=== PATIENT | female | born 1980 | race Caucasian/White ===

== ENCOUNTER 2019-01-01 16:47 | Emergency (ER) | payer SELFPAY ==
[2019-01-01] MEDS ORDERED: DEXAMETHASONE SOD PHOS 10 MG/ML VIAL IM ONE (17:15)
[2019-01-01] MEDS ORDERED: KETOROLAC 60 MG/2 ML VIAL. IM ONE (17:15)
[2019-01-01] MEDS ORDERED: KETO10TA PO (17:40)
[2019-01-01] MEDS ORDERED: TRAM50TA PO (17:40)
[2019-01-01] MEDS ORDERED: METH4TAB2 PO (17:40)
--- NOTE | 2019-01-01 17:40 | PHYS DOC ---
Adult General Chief Complaint Chief Complaint: UPPER EXTREMITY PAIN HPI HPI Patient is a 38-year-old female who presents with complaint of right wrist and forearm pain for the last several days and progressively worsening. She indicates that pain is worsened with flexion and extension of her wrist and with movement of her thumb. 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.[] Review of Systems Review of Systems Constitutional: Denies fever or chills [] Respiratory: Denies cough or shortness of breath [] Cardiovascular: No additional information not addressed in HPI [] Musculoskeletal: Positive right wrist and forearm pain [] Integument: Denies rash or skin lesions [] Current Medications Current Medications Current Medications Medications (Trade) Dose Ordered Sig/Turner Start Time Stop Time Status Last Admin Dose Admin Dexamethasone Sodium Phosphate (Decadron) 10 mg 1X ONCE 01/01/19 17:15 01/01/19 17:16 DC 01/01/19 17:21 10 MG Ketorolac Tromethamine (Toradol Im) 60 mg 1X ONCE 01/01/19 17:15 01/01/19 17:16 DC 01/01/19 17:20 60 MG Allergies Allergies Allergies Coded Allergies Type Severity Reaction Last Updated Verified Sulfa (Sulfonamide Antibiotics) Allergy Unknown 01/01/19 Yes Physical Exam Physical Exam Constitutional: Well developed, well nourished, no acute distress, non-toxic appearance. [] Cardiovascular:Heart rate regular rhythm, no murmur [] Lungs & Thorax: Bilateral breath sounds clear to auscultation [] Skin: Warm, dry, no erythema, no rash. [] Extremities: Examination of right wrist demonstrates pain with both flexion and extension of the wrist. There is also pain on Catrachito's testing. [] EKG EKG [] Radiology/Procedures Radiology/Procedures [] Course & Med Decision Making Course & Med Decision Making Pertinent Labs and Imaging studies reviewed. (See chart for details) [] Dragon Disclaimer Dragon Disclaimer This electronic medical record was generated, in whole or in part, using a voice recognition dictation system. Departure Departure: Impression: Primary Impression: Tendinitis of right wrist Additional Impression: De Quervain's tenosynovitis, right Disposition: 01 HOME, SELF-CARE Condition: STABLE Referrals: PCP,NO (PCP) Patient Instructions: De Quervain's Tenosynovitis-SportsMed, Tendinitis Scripts Methylprednisolone (MEDROL) 4 Mg Tab.ds.pk 1 PKG PO UD for tendinitis, #1 PKG Prov: MULUGETA RODRIGUEZ Jr. DO 01/01/19 Tramadol Hcl (TRAMADOL HCL) 50 Mg Tablet 50 MG PO PRN Q6HRS PRN for PAIN, #12 TAB Prov: MULUGETA RODRIGUEZ Jr. DO 01/01/19 Ketorolac Tromethamine (KETOROLAC TROMETHAMINE) 10 Mg Tablet 1 TAB PO PRN Q6HRS PRN for PAIN, #20 TAB Prov: MULUGETA RODRIGUEZ Jr. DO 01/01/19 Problem Qualifiers MULUGETA RODRIGUEZ Jr. DO Jan 01, 2019 17:40
== END 2019-01-01 17:43 | disposition home or self-care (01) ==
LOC: ER 16:47
DX: M70.031 Crepitant synovitis (acute) (chronic), right wrist (principal); M77.9 Enthesopathy, unspecified; Z88.2 Allergy status to sulfonamides; Y93.89 Activity, other specified
CPT/HCPCS: 29125; 96372; 99284; J1100; J1885

== ENCOUNTER 2019-01-09 07:30 | Emergency (ER) | payer SELFPAY ==
[~2019-01-09] VITALS: Ht 185.4 cm; Wt 102.1 kg
[~2019-01-09 07:30] MED LIST: KETO10TA PO; METH4TAB2 PO; TRAM50TA PO
[2019-01-09] MEDS ORDERED: IBUPROFEN 600 MG TABLET. PO ONE (08:00)
--- NOTE | 2019-01-09 08:25 | RAD ---
Examination: 2 views of the right johnnie and 3 views of the right wrist HISTORY: History of crush injury COMPARISON: None available FINDINGS: The alignment of the radius, ulna grossly appears unremarkable. There is no acute fracture or dislocation identified. Alignment of the carpal bones grossly appears unremarkable. Questionable elbow joint effusion. IMPRESSION: No obvious acute osseous findings. Questionable elbow joint effusion. Consider follow-up elbow radiograph in 5-7 days, if there is clinical suspicion for acute fracture. Electronically signed by: Patrick Hall MD (01/09/2019 8:22 AM) [place] [id number]
[2019-01-09] MEDS ORDERED: MELO7.5T29 PO (08:43)
[2019-01-09] MEDS ORDERED: DOXY100T PO (08:43)
[2019-01-09] MEDS ORDERED: LISI10TA2 PO (08:43)
--- NOTE | 2019-01-09 08:44 | PHYS DOC ---
Past History Past Medical History: DVT, Hypertension, Other Past Surgical History: , Tubal ligation, Other Smoking: Cigarettes Alcohol Use: None Social History Narrative: hx of use, none recently Adult General Chief Complaint Chief Complaint: MULTIPLE COMPLAINTS HPI HPI Patient is a 38-year-old female presents complaining of multiple complaints: 1. Right third toe infection. This started within the past 48 hours, was swollen, it popped and drained material. It is irritated. 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 She has not been on any recent antibiotics. Denies any fever denies any nausea or vomiting. It is painful to touch. Discomfort is mild to moderate. 2. Continued right forearm and wrist pain. 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 Her arm got trapped between the wall and the patient's wheelchair arm. She has had continued pain since that time. She reports increased pain with movement. She was seen approximately a week ago and was initially doing better with steroid and NSAID treatment however pain has returned and become worse. Increased pain with movement especially extension of the fingers. No weakness. She is right-hand dominant. No numbness. She has not followed up with anyone since this happened.[] Review of Systems Review of Systems Constitutional: Denies fever or chills [] Eyes: Denies change in visual acuity, redness, or eye pain [] HENT: Denies nasal congestion or sore throat [] Respiratory: Denies cough or shortness of breath [] Cardiovascular: No chest pain or palpitations[] GI: Denies abdominal pain, nausea, vomiting, bloody stools or diarrhea [] : Denies dysuria or hematuria [] Musculoskeletal: Denies back pain or joint pain [] Integument: Patient concerned because she has not followed up with the health care team the performed breast biopsy approximately 5 weeks ago. She reports being afraid of finding out the results. There is a family history of breast cancer. This skin from the biopsy sites has been healing well.[] Neurologic: Denies headache, focal weakness or sensory changes [] Endocrine: Denies polyuria or polydipsia [] All other systems were reviewed and found to be within normal limits, except as documented in this note. Current Medications Current Medications Current Medications Medications (Trade) Dose Ordered Sig/Turner Start Time Stop Time Status Last Admin Dose Admin Ibuprofen (Motrin) 600 mg 1X ONCE 7/22/19 08:00 01/09/19 08:03 DC Allergies Allergies Allergies Coded Allergies Type Severity Reaction Last Updated Verified Sulfa (Sulfonamide Antibiotics) Allergy Unknown 01/01/19 Yes Physical Exam Physical Exam Constitutional: Well developed, well nourished, no acute distress, non-toxic appearance. [] HENT: Normocephalic, atraumatic, bilateral external ears normal, oropharynx moist, no oral exudates, nose normal. [] Eyes: PERRLA, EOMI, conjunctiva normal, no discharge. [] Neck: Normal range of motion, no tenderness, supple, no stridor. [] Cardiovascular:Heart rate regular rhythm, no murmur [] Lungs & Thorax: Bilateral breath sounds clear to auscultation [] Abdomen: Bowel sounds normal, soft, no tenderness, no masses, no pulsatile masses. [] Skin: Warm, dry, no erythema, no rash. [] Back: No tenderness, no CVA tenderness. [] Extremities: Right third toe has a 1 cm by half centimeter region of removed e pidermis. There is no purulent drainage. No red streaks tracking proximally. She is distally neurovascularly intact. Right forearm and wrist has full active range of motion. Diffuse tenderness. FDS, FDP, and extensor mechanisms are intact. Normal opposition. Capillary refill is less than 2 seconds. 2. discrimination is less than 5 mm. A joint above and below the forearm and wrist were evaluated and were normal. The other 2 extremities show: No tenderness, no cyanosis, no clubbing, ROM intact, no edema. [] Neurologic: Alert and oriented X 3, normal motor function, normal sensory function, no focal deficits noted. [] Psychologic: Affect tearful when talking about the breast biopsy, judgement normal, mood depressed. [] Current Patient Data Vital Signs Vital Signs Date Time Temp Pulse Resp B/P (MAP) Pulse Ox O2 Delivery O2 Flow Rate FiO2 01/09/19 07:30 98.0 107 18 99 Room Air EKG EKG [] Radiology/Procedures Radiology/Procedures Examination: 2 views of the right johnnie and 3 views of the right wrist HISTORY: History of crush injury COMPARISON: None available FINDINGS: The alignment of the radius, ulna grossly appears unremarkable. There is no acute fracture or dislocation identified. Alignment of the carpal bones grossly appears unremarkable. Questionable elbow joint effusion. IMPRESSION: No obvious acute osseous findings. Questionable elbow joint effusion. Consider follow-up elbow radiograph in 5-7 days, if there is clinical suspicion for acute fracture. [] Course & Med Decision Making Course & Med Decision Making Pertinent Labs and Imaging studies reviewed. (See chart for details) ED course: Patient arrived, was placed in bed, and tolerated exam well. She was transported to and from radiology with any complications. Held additional NSAIDs from the patient since her last dose was 6, 200 mg tablets of ibuprofen at 4:00 this morning. Discussed appropriate dosing of NSAIDs. Also discussed needing to take blood pressure medicine and follow-up with her health care team the performed the breast biopsy. All questions were answered. Patient was discharged in improved condition. Medical decision making: There is no evidence of a fracture dislocation. We will cover the toe lesion for MRSA. Note that she is allergic to sulfa medicines and so we'll be prescribing doxycycline. Will change anti-inflammatory to one that is once a day. Will not prescribe any additional steroids at this time. Will start patient on a antihypertensive that is on the $4 list at local pharmacies. Also instructing patient on the DASH diet.[] Dragon Disclaimer Dragon Disclaimer This electronic medical record was generated, in whole or in part, using a voice recognition dictation system. Departure Departure: Impression: Primary Impression: Cellulitis Additional Impressions: Crush injury forearm Hypertension Disposition: 01 HOME, SELF-CARE Condition: IMPROVED Referrals: PCP,NO (PCP) Patient Instructions: Cellulitis, DASH Diet, Hypertension Additional Instructions: Follow-up with your regular doctor in 2 days. If you do not have a regular doctor list of local clinics will be provided for you. Take your medication as prescribed. Follow-up with the health care team regarding the results of your breast biopsy. Return to the ER if worsening pain, weakness, or any other concerns. Scripts Lisinopril (LISINOPRIL) 10 Mg Tablet 10 MG PO DAILY for FOR HYPERTENSION, #30 TAB 0 Refills Prov: MARIA C CORREA DO 01/09/19 Meloxicam (MELOXICAM) 7.5 Mg Tablet 7.5 MG PO DAILY for PAIN, #20 TAB Prov: MARIA C CORREA DO 01/09/19 Doxycycline Hyclate (DOXYCYCLINE HYCLATE) 100 Mg Tablet 1 TAB PO BID for cellulitis, #20 TAB Prov: MARIA C CORREA DO 01/09/19 Problem Qualifiers Primary Impression: Cellulitis Site of cellulitis: extremity Site of cellulitis of extremity: lower extremity Laterality: right Qualified Codes: L03.115 - Cellulitis of right lower limb Additional Impressions: Crush injury forearm Encounter type: subsequent encounter Laterality: right Qualified Codes: S57.81XD - Crushing injury of right forearm, subsequent encounter Hypertension Hypertension type: unspecified Qualified Codes: I10 - Essential (primary) hypertension MARIA C CORREA DO Jan 09, 2019 08:44
[2019-01-09 08:58] VITALS: BP 144/108
== END 2019-01-09 08:58 | disposition home or self-care (01) ==
LOC: ER 07:30
DX: S57.81XD Crushing injury of right forearm, subsequent encounter (principal); L03.115 Cellulitis of right lower limb; I10 Essential (primary) hypertension; M25.531 Pain in right wrist; F17.210 Nicotine dependence, cigarettes, uncomplicated; Z86.718 Personal history of other venous thrombosis and embolism; Z86.14 Personal history of Methicillin resistant Staphylococcus aureus infection; Z88.2 Allergy status to sulfonamides; W23.0XXD Caught, crushed, jammed, or pinched between moving objects, subsequent encounter
CPT/HCPCS: 73090; 73110; 99284

== ENCOUNTER 2019-01-29 22:03 | Inpatient (IN) | payer SELFPAY ==
[~2019-01-29] VITALS: Ht 185.4 cm; Wt 108.7 kg
[~2019-01-29 22:03] MED LIST changes: +DOXY100T PO; +LISI10TA2 PO; +MELO7.5T29 PO
--- NOTE | 2019-01-29 22:45 | ED.ADGEN ---
Past History Past Medical History: DVT, High Cholesterol, Hypertension, Other Past Surgical History: , Tubal ligation, Other Smoking: Cigarettes Alcohol Use: None Drug Use: None Adult General Chief Complaint Chief Complaint ".. I started having some chest pain today... here in the center... I ve had this discomfort since about 7:30 ( 1930 hrs).. it just aleja nagging uncomfortable... not really a pain..." HPI HPI Patient is a 38 year old female who presents with above hx and complaints central chest discomfort. No radiation. No history of trauma. No history of prior cardiac disorder. Has had history of previous DVT , was treated with Coumadin for 6 months. She does a history of elevated cholesterol. Patient does smoke. Patient does have a history of hypertension. Patient has a history of immunosuppression. No history of cough or fever or chills. Patient normally follows with Dr. Moreno. Patient does have a strong family history of cardiac disease and MIs. Father had NH at age 38. Mother had NH at age 53. Brother of spinal meningitis. Sister has not had any problems. Review of Systems Review of Systems Constitutional: Denies fever or chills [] Eyes: Denies change in visual acuity, redness, or eye pain [] HENT: Denies nasal congestion or sore throat [] Respiratory: Denies cough or shortness of breath [] Cardiovascular: No additional information not addressed in HPI [] GI: Denies abdominal pain, nausea, vomiting, bloody stools or diarrhea [] : Denies dysuria or hematuria [] Musculoskeletal: Denies back pain or joint pain [] Integument: Denies rash or skin lesions [] Neurologic: Denies headache, focal weakness or sensory changes [] Endocrine: Denies polyuria or polydipsia [] All other systems were reviewed and found to be within normal limits, except as documented in this note. Family History Family History Hypertension coronary artery disease. Current Medications Current Medications Current Medications Medications (Trade) Dose Ordered Sig/Turner Start Time Stop Time Status Last Admin Dose Admin Acetaminophen (Tylenol) 650 mg PRN Q4HRS PRN 01/30/19 00:00 01/30/19 23:59 Aspirin (Children'S Aspirin) 324 mg 1X ONCE 01/29/19 23:15 01/29/19 23:16 DC 01/29/19 23:47 324 MG Enoxaparin Sodium (Lovenox 100mg Syringe) 100 mg 1X ONCE 01/30/19 00:15 01/30/19 00:16 DC 01/30/19 00:21 100 MG Lactated Ringer's 1,000 ml @ 200 mls/hr Q5H 01/30/19 00:00 01/30/19 02:44 DC 01/30/19 01:49 200 MLS/HR Nitroglycerin (Nitro-Bid Oint) 1 inch 1X ONCE 01/30/19 00:15 01/30/19 00:16 DC 01/30/19 00:30 1 INCH Ondansetron HCl (Zofran) 4 mg PRN Q4HRS PRN 01/30/19 00:15 01/30/19 00:16 DC Allergies Allergies Allergies Coded Allergies Type Severity Reaction Last Updated Verified Sulfa (Sulfonamide Antibiotics) Allergy Unknown 01/01/19 Yes Physical Exam Physical Exam Constitutional: moderate acute distress, non-toxic appearance. [] HENT: Normocephalic, atraumatic, bilateral external ears normal, oropharynx moist, no oral exudates, nose normal. [] Eyes: PERRLA, EOMI, conjunctiva normal, no discharge. [] Neck: Normal range of motion, no tenderness, supple, no stridor. [] Cardiovascular:Heart rate regular rhythm, no murmur [] Lungs & Thorax: Bilateral breath sounds equal apex with few scattered wheezes on auscultation [] Abdomen: Bowel sounds normal, soft, no tenderness, no masses, no pulsatile masses. [] Mild obesity. Old surgery scars Skin: Warm, dry, no erythema, no rash. [] Back: No tenderness, no CVA tenderness. [] Extremities: No tenderness, no cyanosis, no clubbing, ROM intact, no edema. [] No cording appreciated Neurologic: Alert and oriented X 3, normal motor function, normal sensory function, no focal deficits noted. [] Psychologic: Affect anxious, judgement normal, mood normal. [] Current Patient Data Vital Signs Vital Signs Date Time Temp Pulse Resp B/P (MAP) Pulse Ox O2 Delivery O2 Flow Rate FiO2 01/29/19 23:40 77 18 103/59 (74) 98 Room Air 01/29/19 22:14 97.6 Lab Results Laboratory Tests Test 01/29/19 22:23 White Blood Count 10.7 x10^3/uL (4.0-11.0) Red Blood Count 4.53 x10^6/uL (3.50-5.40) Hemoglobin 13.8 g/dL (12.0-15.5) Hematocrit 42.0 % (36.0-47.0) Mean Corpuscular Volume 93 fL (79-100) Mean Corpuscular Hemoglobin 30 pg (25-35) Mean Corpuscular Hemoglobin Concent 33 g/dL (31-37) Red Cell Distribution Width 14.0 % (11.5-14.5) Platelet Count 310 x10^3/uL (140-400) Neutrophils (%) (Auto) 57 % (31-73) Lymphocytes (%) (Auto) 30 % (24-48) Monocytes (%) (Auto) 10 % (0-9) H Eosinophils (%) (Auto) 3 % (0-3) Basophils (%) (Auto) 1 % (0-3) Neutrophils # (Auto) 6.1 x10^3uL (1.8-7.7) Lymphocytes # (Auto) 3.2 x10^3/uL (1.0-4.8) Monocytes # (Auto) 1.1 x10^3/uL (0.0-1.1) Eosinophils # (Auto) 0.3 x10^3/uL (0.0-0.7) Basophils # (Auto) 0.1 x10^3/uL (0.0-0.2) Prothrombin Time < 9.3 SEC (9.4-11.4) L Prothrombin Time INR 0.9 (0.9-1.1) Activated Partial Thromboplast Time 24 SEC (23-33) D-Dimer (Jamila) 0.32 mg/L (0.00-0.50) Maternal Serum HCG Beta Subunit < 1 mIU/mL (0-6) Sodium Level 139 mmol/L (136-145) Potassium Level 3.9 mmol/L (3.5-5.1) Chloride Level 101 mmol/L (98-107) Carbon Dioxide Level 28 mmol/L (21-32) Anion Gap 10 (6-14) Blood Urea Nitrogen 15 mg/dL (7-20) Creatinine 1.3 mg/dL (0.6-1.0) H Estimated GFR (Cockcroft-Gault) 46.3 Glucose Level 93 mg/dL (70-99) Calcium Level 9.0 mg/dL (8.5-10.1) Magnesium Level 2.1 mg/dL (1.8-2.4) Total Bilirubin 0.1 mg/dL (0.2-1.0) L Direct Bilirubin 0.1 mg/dL (0.0-0.2) Aspartate Amino Transferase (AST) 6 U/L (15-37) L Alanine Aminotransferase (ALT) 20 U/L (14-59) Alkaline Phosphatase 67 U/L (46-116) Creatine Kinase 128 U/L (26-192) Troponin I Quantitative < 0.017 ng/mL (0-0.055) XF-Rsr-H-Type Natriuretic Peptide 23 pg/mL (0-124) Total Protein 7.4 g/dL (6.4-8.2) Albumin 3.5 g/dL (3.4-5.0) Lipase 142 U/L (73-393) EKG EKG I interpretation EKG shows a sinus rhythm at 87 bpm. There is mild leftward axis. There is some nonspecific anterior septal changes. But no findings acute STEMI of contralateral changes.[] Radiology/Procedures Radiology/Procedures I interpretation Chest x-ray shows no acute cardiopulmonary findings.[] See formal [place] [id number] IMAGING REPORT Signed PATIENT: ELIER SALAZAR JACCOUNT: [id number] : 1980 LOCATION: [address] [place] [address] AGE: 38 SEX: F EXAM STATUS: ADM IN ORD. PHYSICIAN: GA ARRIETA MD REASON: cp PROCEDURE: CHEST PA & LATERAL Two-view chest dated 01/29/2019. No comparison available. Clinical data indication: Chest pain. FINDINGS: PA and lateral views were obtained. Heart and mediastinal contours within normal limits. Lungs are clear. No consolidation or pleural effusion. No pneumothorax. IMPRESSION: No acute radiographic abnormality. Electronically signed by: Ramon Lopez MD (01/30/2019 12:38 AM) [facility] DICTATED AND SIGNED BY: RAMON LOPEZ MD DATE: 01/30/19 0038 CC: MAKI ANDERSON MD; GA ARRIETA MD; PCP,NO ~ Course & Med Decision Making Course & Med Decision Making Pertinent Labs and Imaging studies reviewed. (See chart for details) Admit to Dr. Anderson and cardiology consult. Heart score 4 to 5 [] Final Impression Final Impression 1. Chest Pain 2. HTN 3. Hx Elevated Cholesterol 4. Tobacco Use[] 5. Mild elevation creatinine 1.3 Dragon Disclaimer Dragon Disclaimer This electronic medical record was generated, in whole or in part, using a voice recognition dictation system. Dragon Disclaimer This chart was dictated in whole or in part using Voice Recognition software in a busy, high-work load, and often noisy Emergency Department environment. It may contain unintended and wholly unrecognized errors or omissions. GA ARRIETA MD Jan 29, 2019 22:45
[2019-01-29 23:05] LABS: BASO # 0.1 x10^3/uL (0.0-0.2); BASO % 1 % (0-3); EOS # 0.3 x10^3/uL (0.0-0.7); EOS % 3 % (0-3); HEMOGLOBIN 13.8 g/dL (12.0-15.5); LYMPH # 3.2 x10^3/uL (1.0-4.8); LYMPH % 30 % (24-48); MEAN CORPUSCULAR HEMOGLOBIN 30 pg (25-35); MEAN CORPUSCULAR HGB CONC 33 g/dL (31-37); MEAN CORPUSCULAR VOLUME 93 fL (79-100); MONO # 1.1 x10^3/uL (0.0-1.1); MONO % 10 % (0-9); NEUT # 6.1 x10^3uL (1.8-7.7); NEUT % 57 % (31-73); PLATELET COUNT 310 x10^3/uL (140-400); RED BLOOD COUNT 4.53 x10^6/uL (3.50-5.40); WHITE BLOOD COUNT 10.7 x10^3/uL (4.0-11.0)
[2019-01-29] MEDS ORDERED: ASPIRIN 81 MG TAB.CHEW PO ONE (23:15)
[2019-01-29] MEDS ORDERED: IV RINGERS SOLUTION,LACTATED 1,000 ML IV SCH (23:15)
[2019-01-29 23:17] LABS: ALBUMIN 3.5 g/dL (3.4-5.0); CREATININE 1.3 mg/dL (0.6-1.0); DIRECT BILIRUBIN 0.1 mg/dL (0.0-0.2); GFR 46.3; MAGNESIUM 2.1 mg/dL (1.8-2.4); POTASSIUM 3.9 mmol/L (3.5-5.1); TOTAL BILIRUBIN 0.1 mg/dL (0.2-1.0); TOTAL PROTEIN 7.4 g/dL (6.4-8.2)
[2019-01-30] MEDS ORDERED: ACETAMINOPHEN 325 MG TABLET PO PRN
[2019-01-30] MEDS ORDERED: NITROGLYCERIN OINT 1 GM PACKET. TP ONE (00:15)
[2019-01-30] MEDS ORDERED: ONDANSETRON PF 4 MG/2 ML VIAL. IV PRN ×2 (00:15→08:30)
[2019-01-30] MEDS ORDERED: ENOXAPARIN ** NOTE DOSE ** SYRINGE SQ ONE (00:15)
--- NOTE | 2019-01-30 00:40 | RAD ---
Two-view chest dated 01/29/2019. No comparison available. Clinical data indication: Chest pain. FINDINGS: PA and lateral views were obtained. Heart and mediastinal contours within normal limits. Lungs are clear. No consolidation or pleural effusion. No pneumothorax. IMPRESSION: No acute radiographic abnormality. Electronically signed by: Ramon Lopez MD (01/30/2019 12:38 AM) [facility]
[2019-01-30 01:58] VITALS: BP 130/85
[2019-01-30 05:50] VITALS: BP 114/69
[2019-01-30] MEDS: IPRATRPIUM/ALBUTEROL 0.5/2.5MG 3 ML NEBU. NEB SCH ×3 (08:00→16:00)
[2019-01-30] MEDS ORDERED: IV RINGERS SOLUTION,LACTATED 1,000 ML IV SCH ×2 (08:00)
[2019-01-30] MEDS ORDERED: ONDANSETRON PF 4 MG/2 ML VIAL. IM ONE (08:15)
[2019-01-30 09:30] LABS: BASO # 0.1 x10^3/uL (0.0-0.2); BASO % 1 % (0-3); EOS # 0.3 x10^3/uL (0.0-0.7); EOS % 4 % (0-3); HEMATOCRIT 36.7 % (36.0-47.0); LYMPH # 2.1 x10^3/uL (1.0-4.8); LYMPH % 28 % (24-48); MEAN CORPUSCULAR HEMOGLOBIN 30 pg (25-35); MEAN CORPUSCULAR HGB CONC 33 g/dL (31-37); MEAN CORPUSCULAR VOLUME 91 fL (79-100); MONO # 0.6 x10^3/uL (0.0-1.1); MONO % 8 % (0-9); NEUT # 4.4 x10^3uL (1.8-7.7); NEUT % 59 % (31-73); PLATELET COUNT 236 x10^3/uL (140-400); RED BLOOD COUNT 4.03 x10^6/uL (3.50-5.40); WHITE BLOOD COUNT 7.5 x10^3/uL (4.0-11.0)
[2019-01-30 09:44] LABS: CALCIUM 8.4 mg/dL (8.5-10.1); GFR 62.7
--- NOTE | 2019-01-30 09:54 | EKG ---
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
[2019-01-30 10:58] VITALS: BP 114/74
--- NOTE | 2019-01-30 13:03 | PDOC2 ---
CONSULT Date of Admission DATE: 01/30/19 TIME: 13:03 Reason for Consult: Chest pain Referring Physician: Dr. Jacobs Chief Complaint Chest pain Source: Chart review, Patient Problem List Problems Medical Problems: (1) Chest pain Status: Acute History of Present Illness 38-year-old female presented complaining of retrosternal chest discomfort not related to exertion or food intake. She denied any orthopnea/PND, palpitations or syncope. She was worried since she has strong family history of premature coronary artery disease. Past Medical History Hypertension Hyperlipidemia DVT Past Surgical History section Tubal ligation Family History Strongly positive for premature coronary artery disease Social History Patient admitted to smoking cigarettes but denied any alcohol or drug use Current Medications Current Medications Aspirin (Children'S Aspirin) 324 mg 1X ONCE PO Last administered on 01/29/19at 23:47; Start 01/29/19 at 23:15; Stop 01/29/19 at 23:16; Status DC Lactated Ringer's 1,000 ml @ 1,000 mls/hr Q1H IV Last administered on 01/29/19at 23:47; Start 01/29/19 at 23:15; Stop 01/30/19 at 00:14; Status DC Enoxaparin Sodium (Lovenox 100mg Syringe) 100 mg 1X ONCE SQ Last administered on 01/30/19at 00:21; Start 01/30/19 at 00:15; Stop 01/30/19 at 00:16; Status DC Nitroglycerin (Nitro-Bid Oint) 1 inch 1X ONCE TP Last administered on 01/30/19at 00:30; Start 01/30/19 at 00:15; Stop 01/30/19 at 00:16; Status DC Ondansetron HCl (Zofran) 4 mg PRN Q4HRS PRN IV NAUSEA/VOMITING; Start 01/30/19 at 00:15; Stop 01/30/19 at 00:16; Status DC Acetaminophen (Tylenol) 650 mg PRN Q4HRS PRN PO FEVER Last administered on 01/30/19at 08:11; Start 01/30/19 at 00:00; Stop 01/30/19 at 23:59 Albuterol/ Ipratropium (Duoneb) 3 ml RTQID NEB ; Start 01/30/19 at 08:00; Stop 8/13/19 at 07:59 Lactated Ringer's 1,000 ml @ 200 mls/hr Q5H IV Last administered on 01/30/19at 01:49; Start 01/30/19 at 00:00; Stop 01/30/19 at 02:44; Status DC Lactated Ringer's 1,000 ml @ 100 mls/hr Q10H IV Last administered on 01/30/19at 08:11; Start 01/30/19 at 08:00 Ondansetron HCl (Zofran) 4 mg 1X ONCE IM ; Start 01/30/19 at 08:15; Stop 01/30/19 at 08:22; Status DC Ondansetron HCl (Zofran) 4 mg PRN Q6HRS PRN IV NAUSEA/VOMITING Last administered on 01/30/19at 08:25; Start 01/30/19 at 08:30 Active Scripts Active Reported No Known Medications Prior To Admisstion (Info) Each 1 Each MC 1X Allergies: Coded Allergies: Sulfa (Sulfonamide Antibiotics) (Verified Allergy, Unknown, 01/01/19) PSYCHOLOGICAL ROS: No: Hallucinations Eyes: No: Loss of vision HEENT: No: Epistaxis Respiratory: No: Hemoptysis, Shortness of breath Cardiovascular: yes: Chest Pain Gastrointestinal: No: Vomiting, Diarrhea Neurological: No: Seizures Skin: No: Rash General: Alert, Oriented X3 HEENT: Atraumatic, PERRLA Lungs: Clear to auscultation Heart: Regular rate Abdomen: Soft, No tenderness Extremities: No edema Psych/Mental Status: Mood NL VITALS Vital Signs Date Time Temp Pulse Resp B/P (MAP) Pulse Ox O2 Delivery O2 Flow Rate FiO2 01/30/19 10:58 97.3 67 20 114/74 (87) 98 Room Air Labs Laboratory Tests Test 01/29/19 22:23 01/30/19 03:44 01/30/19 09:19 White Blood Count 10.7 x10^3/uL (4.0-11.0) 7.5 x10^3/uL (4.0-11.0) Red Blood Count 4.53 x10^6/uL (3.50-5.40) 4.03 x10^6/uL (3.50-5.40) Hemoglobin 13.8 g/dL (12.0-15.5) 12.0 g/dL (12.0-15.5) Hematocrit 42.0 % (36.0-47.0) 36.7 % (36.0-47.0) Mean Corpuscular Volume 93 fL (79-100) 91 fL (79-100) Mean Corpuscular Hemoglobin 30 pg (25-35) 30 pg (25-35) Mean Corpuscular Hemoglobin Concent 33 g/dL (31-37) 33 g/dL (31-37) Red Cell Distribution Width 14.0 % (11.5-14.5) 14.0 % (11.5-14.5) Platelet Count 310 x10^3/uL (140-400) 236 x10^3/uL (140-400) Neutrophils (%) (Auto) 57 % (31-73) 59 % (31-73) Lymphocytes (%) (Auto) 30 % (24-48) 28 % (24-48) Monocytes (%) (Auto) 10 % (0-9) 8 % (0-9) Eosinophils (%) (Auto) 3 % (0-3) 4 % (0-3) Basophils (%) (Auto) 1 % (0-3) 1 % (0-3) Neutrophils # (Auto) 6.1 x10^3uL (1.8-7.7) 4.4 x10^3uL (1.8-7.7) Lymphocytes # (Auto) 3.2 x10^3/uL (1.0-4.8) 2.1 x10^3/uL (1.0-4.8) Monocytes # (Auto) 1.1 x10^3/uL (0.0-1.1) 0.6 x10^3/uL (0.0-1.1) Eosinophils # (Auto) 0.3 x10^3/uL (0.0-0.7) 0.3 x10^3/uL (0.0-0.7) Basophils # (Auto) 0.1 x10^3/uL (0.0-0.2) 0.1 x10^3/uL (0.0-0.2) Prothrombin Time < 9.3 SEC (9.4-11.4) Prothromb Time International Ratio 0.9 (0.9-1.1) Activated Partial Thromboplast Time 24 SEC (23-33) D-Dimer (Jamila) 0.32 mg/L (0.00-0.50) Maternal Serum HCG Beta Subunit < 1 mIU/mL (0-6) Sodium Level 139 mmol/L (136-145) 138 mmol/L (136-145) Potassium Level 3.9 mmol/L (3.5-5.1) 4.0 mmol/L (3.5-5.1) Chloride Level 101 mmol/L (98-107) 104 mmol/L (98-107) Carbon Dioxide Level 28 mmol/L (21-32) 27 mmol/L (21-32) Anion Gap 10 (6-14) 7 (6-14) Blood Urea Nitrogen 15 mg/dL (7-20) 16 mg/dL (7-20) Creatinine 1.3 mg/dL (0.6-1.0) 1.0 mg/dL (0.6-1.0) Estimated GFR (Cockcroft-Gault) 46.3 62.7 Glucose Level 93 mg/dL (70-99) 102 mg/dL (70-99) Calcium Level 9.0 mg/dL (8.5-10.1) 8.4 mg/dL (8.5-10.1) Magnesium Level 2.1 mg/dL (1.8-2.4) Total Bilirubin 0.1 mg/dL (0.2-1.0) Direct Bilirubin 0.1 mg/dL (0.0-0.2) Aspartate Amino Transf (AST/SGOT) 6 U/L (15-37) Alanine Aminotransferase (ALT/SGPT) 20 U/L (14-59) Alkaline Phosphatase 67 U/L (46-116) Creatine Kinase 128 U/L (26-192) Troponin I Quantitative < 0.017 ng/mL (0-0.055) < 0.017 ng/mL (0-0.055) < 0.017 ng/mL (0-0.055) VD-Obi-H-Type Natriuretic Peptide 23 pg/mL (0-124) Total Protein 7.4 g/dL (6.4-8.2) Albumin 3.5 g/dL (3.4-5.0) Lipase 142 U/L (73-393) Assessment/Plan 1. Chest pain with atypical features. Myocardial infarction has been ruled out. 2-D echo showed normal LV function without any wall motion abnormalities. Plan ischemic evaluation as an outpatient. 2. Hypertension: Controlled 3. Hyperlipidemia: LDL significantly elevated at 167. Start statin therapy. Thank you for your consultation. JOSÉ MIGUEL FORD MD Jan 30, 2019 13:03
[2019-01-30 14:06] LABS: THYROID STIM HORMONE (TSH) 4.145 uIU/mL (0.358-3.740)
[2019-01-30 14:46] VITALS: BP 128/81
--- NOTE | 2019-01-30 16:56 | CARD ---
MR#: [id number] Date of Study: 01/30/2019 Ordering Physician: BROOK ALDRIDGE, Referring Physician: DARY SMALLWOOD, Tech: Radha Martel APPROVED REPORT EXAM: Two-dimensional and M-mode echocardiogram with Doppler and color Doppler. Other Information Quality : AverageHR: 73bpm INDICATION Chest Pain RISK FACTORS Hypertension Hyperlipidemia Smoking 2D DIMENSIONS Left Atrium(2D)3.3 (1.6-4.0cm)IVSd1.2 (0.7-1.1cm) Aortic Root(2D)3.4 (2.0-3.7cm)LVDd5.5 (3.9-5.9cm) LVOT Diameter2.1 (1.8-2.4cm)PWd1.1 (0.7-1.1cm) LVDs3.2 (2.5-4.0cm)FS (%) 41.6 % SV106.0 mlLVEF(%)71.9 (>50%) Aortic Valve AoV Peak Anthony.136.7cm/sAoV VTI27.9cm AO Peak GR.7.5mmHgLVOT Peak Anthony.95.1cm/s LVOT VTI 19.40cmAO Mean GR.5mmHg BIN (VMAX)2.46sm2HAG (VTI)2.37cm2 Mitral Valve MV E Ivzaayli65.7cm/sMV DECEL [id number] MV A Xmtarizy01.8cm/sE/A Ratio1.7 Pulmonary Valve PV Peak Weenqybb358.5cm/sPV Peak Grad.4mmHg Tricuspid Valve RAP [id number] Pulmonary Vein S1 Nlpastrh19.3cm/sD2 Vzjszxqg38.4cm/s LEFT VENTRICLE The left ventricle is normal size. There is mild concentric left ventricular hypertrophy. The left ve ntricular systolic function is normal and the ejection fraction is within normal range. The Ejection Fraction is >55%. There is normal LV segmental wall motion. The left ventricular diastolic function a nd filling is normal for age. RIGHT VENTRICLE The right ventricle is normal size. There is normal right ventricular wall thickness. The right ventr icular systolic function is normal. ATRIA The left atrium size is normal. The right atrium size is normal. The interatrial septum is intact wit h no evidence for an atrial septal defect or patent foramen ovale as noted on 2-D or Doppler imaging. AORTIC VALVE The aortic valve is normal in structure and function. Doppler and Color Flow revealed no significant aortic regurgitation. There is no significant aortic valvular stenosis. MITRAL VALVE The mitral valve is normal in structure and function. There is no evidence of mitral valve prolapse. There is no mitral valve stenosis. Doppler and Color Flow revealed no mitral valve regurgitation note d. TRICUSPID VALVE The tricuspid valve is normal in structure and function. Doppler and Color Flow revealed no tricuspid valve regurgitation noted. There is no tricuspid valve prolapse or vegetation. There is no tricuspid valve stenosis. PULMONIC VALVE Doppler and Color Flow revealed no pulmonic valvular regurgitation. There is no pulmonic valvular rima nosis. GREAT VESSELS The aortic root is normal in size. The IVC is normal in size and collapses >50% with inspiration. PERICARDIAL EFFUSION There is no evidence of significant pericardial effusion. Critical Notification Critical Value: No <Conclusion> The left ventricular systolic function is normal and the ejection fraction is within normal range. Th e Ejection Fraction is >55%. There is normal LV segmental wall motion. Signed by : Brook Aldridge, Electronically Approved : 01/30/2019 16:56:01
[2019-01-30] MEDS ORDERED: LISI-338 PO (17:45)
[2019-01-30] MEDS ORDERED: ATOR10TA PO (17:45)
[2019-01-30] MEDS ORDERED: ATORVASTATIN CALCIUM 20 MG TABLET PO SCH (21:00)
--- NOTE | 2019-01-30 21:02 | SSS ---
ADMIT DATE: HISTORY OF PRESENT ILLNESS: The patient is a 38-year-old female patient who came to the Emergency Room with complaint of chest pain that she described as retrosternal, described it as discomfort, not really pain, no radiation, no history of trauma, no history of prior cardiac disorder, has had history of previous DVT, was treated with Coumadin for 6 months. She does have a history of elevated cholesterol. Patient does not smoke, does have a history of hypertension. The patient has history of some immunosuppression. The patient normally follows with Dr. Moreno. She does have a strong family history of cardiac disease and myocardial infarction. Father had his first myocardial infarction at the age of ____ and mother at the age of 53. She was evaluated in the Emergency Room. Her EKG showed that she was in sinus rhythm at 87 beats per minute, mild leftward axis, some nonspecific anteroseptal changes, but no ST segment elevation. Chest x-ray was unremarkable. Her first set of cardiac enzyme was normal with a troponin to be less than 0.017. She was admitted, had 2 more sets of cardiac enzymes that ruled out myocardial infarction. She was seen in consultation by the Cardiology team and has had an echocardiogram, which showed that her left ventricular systolic function is normal, ejection fraction is within normal range. Ejection fraction was more than 55%. She has normal left ventricular segmental wall motion abnormalities. Decision was made to discharge her home to continue with her antihypertensive and cholesterol lowering agent and with strong counseling to quit smoking. PAST MEDICAL HISTORY: Significant for hypertension, hyperlipidemia and gestational diabetes. PAST SURGICAL HISTORY: Back surgery, x 2, knee surgery in 1990. ALLERGIES: SHE IS ALLERGIC TO SULFA DRUGS. MEDICATIONS: She used to be on Lipitor and lisinopril. FAMILY HISTORY: One brother when he was a baby with spinal meningitis. Sisters are alive and healthy. Father has had myocardial infarction at the age of ____. At the age of 64, he underwent coronary artery bypass graft surgery and has a pacemaker for AFib. Mother has heart attack at the age of 53. She is now 62. She has diabetes and she is on Coumadin. SOCIAL HISTORY: She is , has 5 kids; 3 girls and 2 boys. She smokes 8-10 cigarettes a day, does not drink alcohol. 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 REVIEW OF SYSTEMS: As per history of present illness. PHYSICAL EXAMINATION: GENERAL: When I examined her today, she looked well and was clearly in no apparent respiratory distress. No pallor, jaundice, cyanosis or thyromegaly. No jugular venous distension. No limb edema. VITAL SIGNS: Her heart rate was 105, blood pressure was 128/85, temperature was 97.3, respiratory rate 20, and oxygen saturation was 98%. HEENT: Showed normocephalic, atraumatic. NECK: Supple. HEART: Showed normal first and second heart sounds with no gallop, rub or murmur. CHEST: Clear to auscultation. No crepitation or rhonchi. ABDOMEN: Distended, soft, nontender. No guarding or rigidity. No organomegaly. All hernial orifice intact. Bowel sounds normal. NEUROLOGIC: She is awake, alert, responding appropriately. All cranial nerves intact. EXTREMITIES: She moves extremities without difficulty. She ambulates without assistance or assistive devices. LABORATORY DATA: Showed a serum sodium 138, potassium 4, chloride 104, bicarbonate 27, anion gap of 7, BUN 16, creatinine 1, estimated GFR was 62 mL per minute. Her glucose was 102, calcium was 8.4. She has 3 sets of cardiac enzymes, showed troponin less than 0.017. Her serum triglycerides were 271, total cholesterol was 268, LDL cholesterol was 67, VLDL was 54, and HDL was 47, ratio of 5. Her TSH was 4.145. Her white cell count was 7500, hemoglobin 12, hematocrit 36, MCV 91, and platelet count of 236,000. Her prothrombin time was 9.3, INR was 0.9, aPTT was 24 and D-dimer was 0.31. Her chest x-ray was normal, showed no acute radiographic abnormality given. She ruled out myocardial infarction, has had a normal echocardiogram. The patient was discharged with counseling stressing the need to quit smoking given very strong family history. Also, she was discharged on Lipitor and lisinopril for high blood pressure and hyperlipidemia. FINAL DISCHARGE DIAGNOSES: Chest pain, myocardial infarction ruled out, hypertension, hyperlipidemia, nicotine dependence. DARY SMALLWOOD MD DR: TITI/yash JOB#: [id number] / [id number]
== END 2019-01-30 18:04 | disposition home or self-care (01) | DRG 313 ==
LOC: ER 22:03 → 1 SOUTH 01-30 00:26
PROVIDERS: ADMIT Family Medicine; ATTEND Internal Medicine
DX: R07.89 Other chest pain (principal); E78.00 Pure hypercholesterolemia, unspecified; I10 Essential (primary) hypertension; F17.210 Nicotine dependence, cigarettes, uncomplicated; E78.5 Hyperlipidemia, unspecified; Z98.891 History of uterine scar from previous surgery; Z98.51 Tubal ligation status; Z86.718 Personal history of other venous thrombosis and embolism; Z82.49 Family history of ischemic heart disease and other diseases of the circulatory system; Z86.32 Personal history of gestational diabetes; Z83.3 Family history of diabetes mellitus
CPT/HCPCS: 36415; 71046; 80048; 80061; 80076; 80307; 82550; 83690; 83735; 83880; 84443; 84484; 84702; 85025; 85379; 85610; 85730; 93005; 93306; 96360; 96361; 96372; J1650; J2405; J7120; 99285-25

== ENCOUNTER 2019-04-17 18:44 | Emergency (ER) | payer SELFPAY ==
[~2019-04-17] VITALS: Ht 185.4 cm; Wt 108.8 kg
[~2019-04-17 18:44] MED LIST changes: +ATOR10TA PO; +LISI-338 PO
[2019-04-17 18:47] VITALS: BP 157/66
[2019-04-17] MEDS ORDERED: CLIN300C8 PO (19:18)
--- NOTE | 2019-04-17 19:19 | PHYS DOC ---
Past History Past Medical History: DVT, High Cholesterol, Hypertension, Other Past Surgical History: , Tubal ligation, Other Smoking: Cigarettes Alcohol Use: None Drug Use: None Adult General Chief Complaint Chief Complaint: SKIN RASH/ABSCESS HPI HPI 38-year-old female presents with left thigh rash. The patient believes that she was bit by something 4 days ago. It is become erythematous and hot to the touch. He now has a central pustule 3 mm with 5 cm of surrounding erythema. It is had no drainage so far. She denies fever or chills. She does not have any other lesions at this time. 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 She is allergic to Bactrim. Clindamycin has worked in the past. It has been "quite a while" since her last antibiotic treatment. She has no other complaints at this time. Review of Systems Review of Systems Constitutional: Denies fever or chills [] Eyes: Denies change in visual acuity, redness, or eye pain [] HENT: Denies nasal congestion or sore throat [] Respiratory: Denies cough or shortness of breath [] Cardiovascular: No additional information not addressed in HPI [] GI: Denies abdominal pain, nausea, vomiting, bloody stools or diarrhea [] : Denies dysuria or hematuria [] Musculoskeletal: Denies back pain or joint pain [] Integument: Left thigh rash[] Neurologic: Denies headache, focal weakness or sensory changes [] Endocrine: Denies polyuria or polydipsia [] All other systems were reviewed and found to be within normal limits, except as documented in this note. Allergies Allergies Allergies Coded Allergies Type Severity Reaction Last Updated Verified Sulfa (Sulfonamide Antibiotics) Allergy Unknown 01/01/19 Yes Physical Exam Physical Exam Constitutional: Well developed, well nourished, no acute distress, non-toxic appearance. [] HENT: Normocephalic, atraumatic, bilateral external ears normal, oropharynx moist, no oral exudates, nose normal. [] Eyes: PERRLA, EOMI, conjunctiva normal, no discharge. [] Neck: Normal range of motion, no tenderness, supple, no stridor. [] Cardiovascular:Heart rate regular rhythm, no murmur [] Lungs & Thorax: Bilateral breath sounds clear to auscultation [] Abdomen: Bowel sounds normal, soft, no tenderness, no masses, no pulsatile masses. [] Skin: 5 cm, erythematous, warm area of skin on the left thigh with a 3 mm central abscess.[] Back: No tenderness, no CVA tenderness. [] Extremities: No tenderness, no cyanosis, no clubbing, ROM intact, no edema. [] Neurologic: Alert and oriented X 3, normal motor function, normal sensory function, no focal deficits noted. [] Psychologic: Affect normal, judgement normal, mood normal. [] EKG EKG [] Radiology/Procedures Radiology/Procedures [] Course & Med Decision Making Course & Med Decision Making Pertinent Labs and Imaging studies reviewed. (See chart for details) The patient was initially tachycardic on arrival, but I think she was just nervous. She does not have a fever. She is well-appearing. I was able to express pus from the wound with spontaneous rupture of the abscess. A wound culture was sent. Further incision and drainage was not necessary. I will place her on clindamycin for 7 days. We will give first dose in the ED. She is stable for discharge at this time. [] Dragon Disclaimer Dragon Disclaimer This electronic medical record was generated, in whole or in part, using a voice recognition dictation system. Departure Departure: Impression: Primary Impression: Cellulitis and abscess of left leg Disposition: 01 HOME, SELF-CARE Condition: STABLE Referrals: PCP,LOULOU (PCP) Patient Instructions: Abscess, Care After Scripts Clindamycin Hcl (CLINDAMYCIN HCL) 300 Mg Capsule 1 CAP PO TID for skin infection, #21 CAP Prov: BRETT MENDENHALL DO 04/17/19 BRETT MENDENHALL DO Apr 17, 2019 19:19
[2019-04-17] MEDS ORDERED: CLINDAMYCIN HCL 150 MG CAPSULE PO ONE (19:30)
== END 2019-04-17 19:28 | disposition home or self-care (01) ==
LOC: ER 18:44
DX: L02.416 Cutaneous abscess of left lower limb (principal); L03.116 Cellulitis of left lower limb; E78.00 Pure hypercholesterolemia, unspecified; I10 Essential (primary) hypertension; F17.210 Nicotine dependence, cigarettes, uncomplicated; Z86.718 Personal history of other venous thrombosis and embolism; Z88.2 Allergy status to sulfonamides
CPT/HCPCS: 87070; 99283

== ENCOUNTER 2019-05-08 11:09 | Emergency (ER) | payer SELFPAY ==
[~2019-05-08] VITALS: Ht 185.4 cm; Wt 89.8 kg
[~2019-05-08 11:09] MED LIST changes: +CLIN300C8 PO
[2019-05-08 11:10] VITALS: BP 138/77
--- NOTE | 2019-05-08 11:45 | PHYS DOC ---
Past History Past Medical History: DVT, High Cholesterol, Hypertension Additional Past Medical Histor: DDD Past Surgical History: , Tubal ligation, Other Additional Past Surgical Histo: BACK Smoking: Cigarettes Alcohol Use: None Drug Use: None Adult General Chief Complaint Chief Complaint: NEEDLE STICK HPI HPI Patient is a 38 year old F who presents after a needlestick from an unknown origin. 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 It's unknown whether the needle was used or unused. The stick was in her left thumb. She has no symptoms at this time. Review of Systems Review of Systems Constitutional: Denies fever or chills [] Eyes: Denies change in visual acuity, redness, or eye pain [] HENT: Denies nasal congestion or sore throat [] Respiratory: Denies cough or shortness of breath [] Cardiovascular: No additional information not addressed in HPI [] GI: Denies abdominal pain, nausea, vomiting, bloody stools or diarrhea [] : Denies dysuria or hematuria [] Musculoskeletal: Denies back pain or joint pain [] Integument: Denies rash or skin lesions [] Neurologic: Denies headache, focal weakness or sensory changes [] Endocrine: Denies polyuria or polydipsia [] All other systems were reviewed and found to be within normal limits, except as documented in this note. Family History Family History No pertinent medical history was reported Current Medications Current Medications Current medications were reviewed Allergies Allergies Allergies Coded Allergies Type Severity Reaction Last Updated Verified I S O L A T I O N *CONTACT* Allergy Unknown 04/24/19 Yes Sulfa (Sulfonamide Antibiotics) Allergy Unknown 01/01/19 Yes Physical Exam Physical Exam Constitutional: Well developed, well nourished, no acute distress, non-toxic appearance. [] HENT: Normocephalic, atraumatic, bilateral external ears normal, oropharynx moist, no oral exudates, nose normal. [] Eyes: PERRLA, EOMI, conjunctiva normal, no discharge. [] Neck: Normal range of motion, no tenderness, supple, no stridor. [] Cardiovascular:Heart rate regular rhythm, no murmur [] Lungs & Thorax: Bilateral breath sounds clear to auscultation [] Abdomen: Bowel sounds normal, soft, no tenderness, no masses, no pulsatile masses. [] Skin: Warm, dry, no erythema, no rash. [] Back: No tenderness, no CVA tenderness. [] Extremities: No tenderness, no cyanosis, no clubbing, ROM intact, no edema. [] Neurologic: Alert and oriented X 3, normal motor function, normal sensory function, no focal deficits noted. [] Psychologic: Affect normal, judgement normal, mood normal. [] Current Patient Data Vital Signs Vital Signs Date Time Temp Pulse Resp B/P (MAP) Pulse Ox O2 Delivery O2 Flow Rate FiO2 05/08/19 11:10 98.8 94 20 98 Room Air Lab Results HIV and hepatitis screenings were ordered EKG EKG [] Radiology/Procedures Radiology/Procedures [] Course & Med Decision Making Course & Med Decision Making Pertinent Labs and Imaging studies reviewed. (See chart for details) Post exposure prophylaxis education was provided Dragon Disclaimer Dragon Disclaimer This electronic medical record was generated, in whole or in part, using a voice recognition dictation system. Departure Departure: Impression: Primary Impression: Needle stick injury Disposition: HOME, SELF-CARE Condition: STABLE Referrals: PCPLOULOU (PCP) Patient Instructions: Body Fluid Exposure Additional Instructions: Afshan was seen in the emergency department after being stuck with a needle except only. No emergency medical condition was found on history or physical exam. She did have blood drawn for HIV and hepatitis screening. She was counseled on exposure prophylaxis. She was strongly encouraged to follow-up with her work comp physician as soon as possible for further management. MAKI FRAUSTO MD May 08, 2019 11:44
== END 2019-05-08 11:53 | disposition home or self-care (01) ==
LOC: ER 11:09
DX: S61.032A Puncture wound without foreign body of left thumb without damage to nail, initial encounter (principal); E78.00 Pure hypercholesterolemia, unspecified; I10 Essential (primary) hypertension; F17.210 Nicotine dependence, cigarettes, uncomplicated; Z86.718 Personal history of other venous thrombosis and embolism; Z91.041 Radiographic dye allergy status; Z88.2 Allergy status to sulfonamides; W46.0XXA Contact with hypodermic needle, initial encounter; Y93.89 Activity, other specified; Y92.89 Other specified places as the place of occurrence of the external cause; Y99.0 Civilian activity done for income or pay
CPT/HCPCS: 86703; 86705; 86709; 86803; 87340; 99284

== ENCOUNTER 2019-08-09 21:44 | Emergency (ER) | payer SELFPAY ==
[~2019-08-09] VITALS: Ht 182.9 cm; Wt 108.8 kg
--- NOTE | 2019-08-09 21:55 | PHYS DOC ---
Past History Past Medical History: DVT, High Cholesterol, Hypertension Additional Past Medical Histor: DDD Past Surgical History: , Tubal ligation, Other Additional Past Surgical Histo: BACK Smoking: Cigarettes Alcohol Use: None Drug Use: None Adult General Chief Complaint Chief Complaint: ".. I ve been coughing constantly the last 5 days... " HPI HPI Patient is a 39 year old female who presents with above hx and complaints nonproductive cough and sore throat and laryngitis. Patient states she's been ill approximately 5 days. Did not get flu vaccination this season. Travel or specific ill contacts. No history immunosuppression. Review of Systems Review of Systems Constitutional: History of periodic fever and chills Eyes: Denies change in visual acuity, redness, or eye pain [] HENT: History of nasal congestion, postnasal drip, sore throat [] Respiratory: History of nonproductive cough and wheezing] Cardiovascular: No additional information not addressed in HPI [] GI: Denies abdominal pain, nausea, vomiting, bloody stools or diarrhea [] : Denies dysuria or hematuria [] Musculoskeletal: Denies back pain or joint pain [] Integument: Denies rash or skin lesions [] Neurologic: Denies headache, focal weakness or sensory changes [] Endocrine: Denies polyuria or polydipsia [] All other systems were reviewed and found to be within normal limits, except as documented in this note. Family History Family History Noncontributory Current Medications Current Medications See nursing for home meds Allergies Allergies Allergies Coded Allergies Type Severity Reaction Last Updated Verified I S O L A T I O N *CONTACT* Allergy Unknown 04/24/19 Yes Sulfa (Sulfonamide Antibiotics) Allergy Unknown 01/01/19 Yes Physical Exam Physical Exam Constitutional: Moderate acute distress, non-toxic appearance. [] HENT: Normocephalic, atraumatic, bilateral external ears normal, oropharynx moist, nasal drainage and erythema, no oral exudates, nose: Turbinates and clear rhinorrhea Eyes: PERRLA, EOMI, conjunctiva normal, no discharge. [] Neck: Normal range of motion, no tenderness, supple, no stridor. [] Cardiovascular:Heart rate regular rhythm, no murmur [] Lungs & Thorax: Bilateral breath sounds with apex with scattered wheezes on auscultation [] Abdomen: Bowel sounds normal, soft, no tenderness, no masses, no pulsatile masses. [] Old surgery scars. Skin: Warm, dry, no erythema, no rash. [] Back: No tenderness, no CVA tenderness. [] Extremities: No tenderness, no cyanosis, no clubbing, ROM intact, no edema. [] Neurologic: Alert and oriented X 3, normal motor function, normal sensory function, no focal deficits noted. [] Psychologic: Affect anxious, judgement normal, mood normal. [] EKG EKG [] Radiology/Procedures Radiology/Procedures [] Course & Med Decision Making Course & Med Decision Making Pertinent Labs and Imaging studies reviewed. (See chart for details) Take prednisone 50 mg a day for 5 days. Use MDI 2 puffs 4 times a day. Tylenol and ibuprofen for discomfort and fever. Benadryl 50 mg nightly be helpful for cough and sleep. Follow-up primary care. Return if any concerns. Recommend no smoking or exposure to tobacco smoke. Impression: 1. Viral syndrome 2 . Viral pharyngitis and bronchitis 3. Tobacco use [] Dragon Disclaimer Dragon Disclaimer This electronic medical record was generated, in whole or in part, using a voice recognition dictation system. Departure Departure: Disposition: HOME/RESIDENCE PRIOR TO ADM Condition: STABLE Referrals: PCP,NO (PCP) Daysi Disclaimer This chart was dictated in whole or in part using Voice Recognition software in a busy, high-work load, and often noisy Emergency Department environment. It may contain unintended and wholly unrecognized errors or omissions. GA ARRIETA MD Aug 09, 2019 21:55
[2019-08-09] MEDS ORDERED: predniSONE 10 MG TABLET PO ONE (22:00)
[2019-08-09] MEDS ORDERED: ALBUTEROL SULFATE 8GM INHALER. INH ONE (22:00)
--- NOTE | 2019-08-09 22:43 | EKG ---
[address] [address] Test Date: 2019-08-09 Test Time: 22:19:05 Pat Name: ELIER SALAZAR Department: Room: Gender: F Website Admin: : 1980 Requested By: GA ARRIETA Order Number: [id number] Reading MD: Measurements Intervals [place] Rate: 99 P: 41 OR: 188 QRS: -10 QRSD: 82 T: 17 QT: 342 QTc: 444 Interpretive Statements SINUS RHYTHM LEFTWARD AXIS NO SPECIFIC ECG ABNORMALITIES RI6.01 No previous ECG available for comparison
[2019-08-09 23:04] LABS: INFLUENZA A PATIENT NEGATIVE (NEGATIVE); INFLUENZA B PATIENT NEGATIVE (NEGATIVE)
[2019-08-10 00:15] VITALS: BP 131/72
== END 2019-08-10 00:36 | disposition home or self-care (01) ==
LOC: ER 21:44
DX: B34.9 Viral infection, unspecified (principal); J02.9 Acute pharyngitis, unspecified; J40 Bronchitis, not specified as acute or chronic; F17.210 Nicotine dependence, cigarettes, uncomplicated; E78.5 Hyperlipidemia, unspecified; I10 Essential (primary) hypertension; Z88.2 Allergy status to sulfonamides; Z88.8 Allergy status to other drugs, medicaments and biological substances
CPT/HCPCS: 87070; 87804; 87880; 93005; 99284; J7512; J7613